=== PATIENT | female | born 1950 | race Two or more races ===

== ENCOUNTER 2024-08-22 03:29 | Emergency (ER) | payer OTHER ==
[~2024-08-22] VITALS: Ht 157.5 cm; Wt 53.1 kg
[~2024-08-22 03:29] MED LIST: ASA81 MG; LISINOPRIL5 MG
[2024-08-22] MEDS ORDERED: LIPITOR20 MG (03:37)
[2024-08-22] MEDS ORDERED: ORPHENADRINE CITRATE 30 MG/ML AMPUL IM STA (04:06)
[2024-08-22] MEDS ORDERED: TRIAMCINOLONE ACETONIDE 40 MG/ML VIAL IM STA (04:06)
[2024-08-22] MEDS ORDERED: ORPHENADRINE CITRATE 30 MG/ML AMPUL ONE (04:14)
[2024-08-22] MEDS ORDERED: TRIAMCINOLONE ACETONIDE 40 MG/ML VIAL ONE (04:15)
[2024-08-22] MEDS ORDERED: DOLOGESIC-DF 51 EACH PO (05:01)
== END 2024-08-22 05:18 ==
LOC: ER 03:31
DX: M25.512 Pain in left shoulder (principal); Z88.1 Allergy status to other antibiotic agents
CPT/HCPCS: 29105; 73030; 96372; 99283; J2360; J3301

== ENCOUNTER 2025-01-14 21:24 | Emergency (ER) | payer OTHER ==
[~2025-01-14] VITALS: Ht 157.5 cm; Wt 54.4 kg
[~2025-01-14 21:24] MED LIST changes: +DOLOGESIC-DF 51 EACH PO; +LIPITOR20 MG
[2025-01-14 21:50] VITALS: BP 140/80; O2SAT 98
[2025-01-14] MEDS ORDERED: ACETAMINOPHEN 500 MG GEL..CAP PO ONE (23:45)
[2025-01-15] MEDS ORDERED: BENICAR20 MG PO (04:36)
== END 2025-01-15 05:13 ==
LOC: ER 21:24
DX: R51.9 Headache, unspecified (principal); I10 Essential (primary) hypertension; Z88.8 Allergy status to other drugs, medicaments and biological substances; Z85.528 Personal history of other malignant neoplasm of kidney